=== PATIENT | male | born 1955 | race Caucasian/White ===

== ENCOUNTER 2024-06-09 06:10 | Day surgery (SDC) | payer OTHER, SELFPAY ==
[2024-05-17 11:21] LABS: Hematocrit 42.2 % (39.0-52.0); Hemoglobin 13.3 g/dL (13.0-18.0); Mean Corp Hgb Conc. 31.5 g/dL (33.0-37.0); Mean Corpuscular Hgb 27.3 pg (27.0-31.0); Mean Corpuscular Volume 86.7 fL (80.0-94.0); Mean Platelet Volume 10.4 fL (7.4-10.4); Platelet Count 197 10^3/uL (130-400); Red Blood Cell Count 4.87 10^6/uL (4.70-6.10); Red Cell Dist. Width 16.9 % (11.5-14.5); White Blood Cell Count 5.5 10^3/uL (4.8-10.8)
[2024-05-17 12:20] LABS: ALT (SGPT) 24 U/L (0-50); AST (SGOT) 27 U/L (17-59); Albumin 4.1 g/dl (3.5-5.0); Alkaline Phosphatase 59 U/L (38-126); Blood Urea Nitrogen 16 mg/dl (9-20); Calcium 9.1 mg/dl (8.4-10.2); Carbon Dioxide 32 mmol/L (22-30); Chloride 99 mmol/L (98-107); Glucose 172 mg/dl (70-99); Potassium 4.2 mmol/L (3.5-5.1); Sodium 138 mmol/L (135-145); Total Bilirubin 0.6 mg/dl (0.2-1.3); eGFR > 60.00
[2024-05-17 12:32] LABS: Glycohemoglobin (HgbA1c) 7.4 % (4.0-5.6)
[2024-05-17 14:16] VITALS: BMI 33.2
[2024-06-09] VITALS (9 sets, daily range): BP systolic 112–153; BP diastolic 53–85; BMI 33.2
[2024-06-09] MEDS: CELEBREX 200 MG PO (09:43)
[2024-06-09] MEDS: TYLENOL 1000 MG PO (09:44)
[2024-06-09 10:02] LABS: Glucose - Point of Care 129 mg/dl (70-99)
[2024-06-09] MEDS: TRANSDERM-SCOP 1 PATCH TRANSDERM (10:21)
[2024-06-09] MEDS: NORMOSOL-R/PLASMALYTE-A 1000 IV (10:22)
--- NOTE | 2024-06-09 11:06 | W.DS.TRANS ---
DC Summary - Nursing Scheduler
-
Discharge Instructions:
Discharge Diagnosis/Procedures L ReverseTSA, trigger, CTR
Diet Diabetic, Carb Controlled
Activity No strenuous activity
Driving Restrictions No driving
Instructions:
Stand-Alone Forms: Total Shoulder Replacement D/C
Changes to Home Medications: Yes
Discharge Medications:
DC Medications w/original date entered in [facility]
Morphine/Bupivicaine 6 mg continuous intrathecal infusion DAILY 05/14/24
albuterol sulfate 90 mcg/actuation aerosol inhaler 2 puff inhalation Q6H PRN wheeze 05/14/24
atenolol 50 mg tablet 50 mg PO HS 05/14/24
atorvastatin 10 mg tablet 10 mg PO HS 05/14/24
cholecalciferol (vitamin D3) 25 mcg (1,000 unit) tablet (Vitamin D3) 25 mcg PO QPM 05/14/24
empagliflozin 12.5 mg-metformin ER 1,000 mg tablet,extended rel 24 hr (Synjardy XR) 1 tab PO BID 05/14/24
enalapril maleate 10 mg tablet 10 mg PO DAILY 05/14/24
epinephrine 0.3 mg/0.3 mL injection, auto-injector 0.3 mg IM ONCE 05/14/24
esomeprazole magnesium 40 mg capsule,delayed release 40 mg PO DAILY 05/14/24
ezetimibe 10 mg tablet 10 mg PO DAILY 05/14/24
fluticasone propionate 50 mcg/actuation nasal spray,suspension 1 spray intranasal DAILY 05/14/24
gabapentin 300 mg capsule 300 mg PO BID 05/14/24
glipizide 10 mg tablet 10 mg PO BID 05/14/24
hydromorphone 4 mg tablet (Dilaudid) 4 mg PO DAILY PRN pain 05/14/24
icosapent ethyl 1 gram capsule (Vascepa) 2 g PO BID 05/14/24
levothyroxine 50 mcg tablet 50 mcg PO DAILY 05/14/24
montelukast 10 mg tablet (Singulair) 10 mg PO HS 05/14/24
multivitamin 1 tab PO DAILY 05/14/24
naloxone 0.4 mg/mL injection syringe 0.4 mg IM Q2M PRN overdose 05/14/24
olopatadine 0.1 % eye drops 1 drp ophthalmic (eye) BID 05/14/24
pioglitazone 30 mg tablet 30 mg PO DAILY 05/14/24
polyethylene glycol 3350 17 gram/dose oral powder (Miralax) 4 g PO DAILY 05/14/24
sertraline 50 mg tablet (Zoloft) 50 mg PO DAILY 05/14/24
tadalafil 20 mg tablet (Cialis) 20 mg PO DAILY PRN ED 05/14/24
testosterone 100 mg/mL intramuscular suspension 100 mg IM AIKEN sy 05/14/24
coenzyme Q10 200 mg capsule (Co Q-10) 200 mg PO QPM 05/17/24
doxycycline hyclate 100 mg tablet 100 mg PO BID #7 tabs 05/17/24
mupirocin 2 % topical ointment 1 applic intranasal BID #1 tube 05/17/24
prochlorperazine maleate 5 mg tablet (Compazine) 5 mg PO TID PRN post-surgical nausea/vomiting #30 tabs 05/17/24
scopolamine base 1 mg over 3 days transdermal patch 1 patch transdermal Q72H PRN nausea/vomiting #4 ea 05/17/24
celecoxib 200 mg capsule (Celebrex) 200 mg PO DAILY #14 caps 05/26/24
hydromorphone 4 mg tablet (Dilaudid) 4 mg PO Q6H PRN moderate-severe pain #30 tabs 05/26/24
pregabalin 75 mg capsule 75 mg PO BID neuropathic pain #15 caps 05/26/24
Saccharomyces boulardii 250 mg capsule (Florastor) 250 mg PO BID #1 cap 06/09/24
acetaminophen 325 mg tablet (Tylenol) 650 mg (2 x 325 mg) PO QID #1 tab 06/09/24
aspirin 325 mg tablet 325 mg PO DAILY blood clot prevention #1 tab 06/09/24
docusate sodium 100 mg capsule (Colace) 100 mg PO BID stool softner #1 cap 06/09/24
magnesium hydroxide 400 mg/5 mL oral suspension (Milk of Magnesia) 30 ml PO HS PRN Constipation #1 mL 06/09/24
sennosides 8.6 mg tablet (Senokot) 17.2 mg (2 x 8.6 mg) PO BID laxative #2 tabs 06/09/24
Home Medication Changes
mupirocin 2 % topical ointment 1 applic intranasal BID #1 tube 05/17/24
prochlorperazine maleate 5 mg tablet (Compazine) 5 mg PO TID PRN post-surgical nausea/vomiting #30 tabs 05/17/24
scopolamine base 1 mg over 3 days transdermal patch 1 patch transdermal Q72H PRN nausea/vomiting #4 ea 05/17/24
celecoxib 200 mg capsule (Celebrex) 200 mg PO DAILY #14 caps 05/26/24
hydromorphone 4 mg tablet (Dilaudid) 4 mg PO Q6H PRN moderate-severe pain #30 tabs 05/26/24
pregabalin 75 mg capsule 75 mg PO BID neuropathic pain #15 caps 05/26/24
Saccharomyces boulardii 250 mg capsule (Florastor) 250 mg PO BID #1 cap 06/09/24
acetaminophen 325 mg tablet (Tylenol) 650 mg (2 x 325 mg) PO QID #1 tab 06/09/24
aspirin 325 mg tablet 325 mg PO DAILY blood clot prevention #1 tab 06/09/24
Pending Results: No
[2024-06-09 13:55] LABS: Glucose - Point of Care 171 mg/dl (70-99)
[2024-06-09] MEDS: ANCEF 5 IV (15:44)
== END 2024-06-09 15:50 | disposition home or self-care (01) ==
LOC: SDS 06:10
PROVIDERS: ATTENDING PHYSICIAN Orthopaedic Surgery Hand Surgery; FAMILY PHYSICIAN Emergency Medicine; OTHER PHYSICIAN Physician Assistant
DX: M19.012 Primary osteoarthritis, left shoulder (principal); M65.332 Trigger finger, left middle finger; G56.02 Carpal tunnel syndrome, left upper limb; M75.102 Unspecified rotator cuff tear or rupture of left shoulder, not specified as traumatic
CPT/HCPCS: 23473; 26055; 64721; C1713; 36415; 73020; 80053; 82962; 83036; 85027; 87070; 93005; C1776